=== PATIENT | female | born 1970 | race African-American/Black ===

== ENCOUNTER 2020-03-19 06:54 | Inpatient (IN) ==
[2020-03-19] MEDS ORDERED: SODIUM CHLORIDE 0.9% 1,000 ML IV STA ×2 (07:40→08:50)
[2020-03-19] MEDS ORDERED: LOPERAMIDE 2 MG CAPSULE PO STA (07:40)
[2020-03-19 07:52] LABS: Basophils # 0.1 10*3/uL (0.0-0.2); Basophils % 0.4 % (0.0-0.8); Eosinophils % 0.1 % (0.00-10.9); Hematocrit 28.3 VOL% (35.7-47.0); Immature Granulocytes % 5.7 %; Immature Granulocytes Absolute 1.54 #; Lymphocytes # 1.1 10*3/uL (1.4-4.0); Lymphocytes % 3.9 % (21.3-54.2); Mean Corpuscular HGB Conc 35.3 GM/DL (32-36); Mean Corpuscular Volume 89.8 FL (87-102); Mean Platelet Volume 9.1 FL (9.6-12.0); Monocytes % 6.1 % (1.7-12.7); Neutrophils % 83.8 % (38.7-73.9); Platelet Count 387 T/CUMM (130-400); Red Blood Count 3.15 MC/CUMM (3.8-5.5); Red Cell Distribution Width 12.5 % (9.3-17.3); White Blood Count 27.2 T/CUMM (4-12)
[2020-03-19 08:11] LABS: Bilirubin,Total 0.8 MG/DL (0.2-1.0); Osmolality,Calculated 294.9 MOS/KG (273-304); Total Protein 7.7 G/DL (6.4-8.3)
[2020-03-19 08:14] LABS: Band Neutrophils 14 % (0-10); Eosinophils 1 % (0-10); Lymphocytes 5 % (20-55); Platelet Estimate Normal; Segmented Neutrophils 73 % (50-85); Smudge Cells Few; Total Cells Counted 100
[2020-03-19 08:15] LABS: Nucleated Red Blood Cells 3 (0-5)
[2020-03-19 08:16] LABS: Burr Cells 1+
[2020-03-19] MEDS ORDERED: DEXTROSE 50% 25 GM/50 ML VIAL IV PRN (10:00)
[2020-03-19] MEDS ORDERED: SIMETHICONE CHEW 125 MG TABLET PO PRN (10:00)
[2020-03-19] MEDS ORDERED: guaiFENesin/DM ER 600-30 MG TABLET PO PRN (10:00)
[2020-03-19] MEDS ORDERED: SODIUM CHLORIDE 0.9% 1,000 ML IV SCH (10:00)
[2020-03-19] MEDS ORDERED: GLUCAGON 1 MG VIAL IM PRN (10:00)
[2020-03-19] MEDS ORDERED: ONDANSETRON 4 MG/2 ML VIAL IV PRN (10:00)
[2020-03-19 11:09] LABS: Barbiturates Screen,Urine Negative (Negative); Benzodiazepines Screen,Urine Negative (Negative); Cannabinoid Screen,Urine Negative (Negative); Opiate Screen,Urine Negative (Negative); Phencyclidine Screen,Urine Negative (Negative)
[2020-03-19 11:14] LABS: Risk Ratio 5.81; Thyroid Stimulating Hormone 0.141 uIU/ml (0.358-3.74); VLDL CHOLESTEROL 32.2 MG/DL
[2020-03-19 11:35] LABS: Hepatitis B Surface Ag Quant > 1000.00 Index; Hepatitis B Surface Ag Result Positive (Negative); Hepatitis C Virus Ab Quant 0.09 Index; Hepatitis C Virus Ab Result Negative (Negative)
[2020-03-19 12:35] LABS: HIV Antigen/Antibody Result Reactive (Nonreactive)
[2020-03-19] MEDS: SODIUM BICARB INJ 100 MEQ in SODIUM CHLORIDE 0.45% 1,000 ML IV SCH ×2 (13:00→21:09)
[2020-03-19] MEDS ORDERED: POTASSIUM CHLORIDE 20 MEQ TABLET PO STA (13:50)
[2020-03-19] MEDS: INSULIN REGULAR 100 UNIT/ML SUBCUT SCH ×3 (15:49→20:43)
[2020-03-19] MEDS: HEPARIN 5,000 UNIT/1 ML VIAL SUBCUT SCH ×2 (16:03→21:04)
[2020-03-19] MEDS: CIPROFLOXACIN INJ 400 MG in PREMIX 1 EACH IV SCH (16:29)
[2020-03-19] MEDS: metroNIDAZOLE INJ 500 MG in PREMIX 1 EACH IV SCH (18:24)
[2020-03-19] MEDS: PRAVASTATIN 20 MG TABLET PO SCH (21:03)
[2020-03-19] MEDS: traZODone 50 MG TABLET PO SCH (21:03)
[2020-03-19] MEDS: ASPIRIN EC 81 MG TABLET PO SCH (21:03)
[2020-03-20] MEDS: metroNIDAZOLE INJ 500 MG in PREMIX 1 EACH IV SCH ×3 (00:16→16:37)
[2020-03-20] MEDS: SODIUM BICARB INJ 100 MEQ in SODIUM CHLORIDE 0.45% 1,000 ML IV SCH ×2 (04:58→10:51)
[2020-03-20] MEDS: HEPARIN 5,000 UNIT/1 ML VIAL SUBCUT SCH ×3 (05:46→22:41)
[2020-03-20 06:52] LABS: Basophils # 0.1 10*3/uL (0.0-0.2); Basophils % 0.3 % (0.0-0.8); Eosinophils % 0.2 % (0.00-10.9); Hematocrit 25.3 VOL% (35.7-47.0); Immature Granulocytes % 6.6 %; Immature Granulocytes Absolute 1.45 #; Lymphocytes # 0.9 10*3/uL (1.4-4.0); Lymphocytes % 4.1 % (21.3-54.2); Mean Corpuscular HGB Conc 35.6 GM/DL (32-36); Mean Corpuscular Volume 89.4 FL (87-102); Monocytes % 4.7 % (1.7-12.7); Neutrophils % 84.1 % (38.7-73.9); Platelet Count 435 T/CUMM (130-400); Red Blood Count 2.83 MC/CUMM (3.8-5.5); Red Cell Distribution Width 12.6 % (9.3-17.3); White Blood Count 21.9 T/CUMM (4-12)
[2020-03-20 07:11] LABS: Albumin 1.8 G/DL (3.4-5.0); Bilirubin,Total 0.8 MG/DL (0.2-1.0); Calcium 8.2 MG/DL (8.5-10.1); Osmolality,Calculated 305.4 MOS/KG (273-304); Total Protein 6.6 G/DL (6.4-8.3)
[2020-03-20 07:14] LABS: Free T4 (Free Thyroxine) 0.45 NG/DL (0.76-1.46)
[2020-03-20] MEDS ORDERED: POTASSIUM CHLORIDE RIDER 10 MEQ in PREMIX 1 EACH IV PRN (07:35)
[2020-03-20 08:12] LABS: Band Neutrophils 1 % (0-10); Lymphocytes 2 % (20-55); Metamyelocytes 1 %; Myelocytes 1 %; Segmented Neutrophils 92 % (50-85); Total Cells Counted 100
[2020-03-20 08:13] LABS: Platelet Estimate Increased; Polychromasia Slight
[2020-03-20 08:14] LABS: Schistocytes Slight
[2020-03-20] MEDS: INSULIN REGULAR 100 UNIT/ML SUBCUT SCH ×4 (08:32→22:40)
[2020-03-20] MEDS: PANTOPRAZOLE 40 MG TABLET PO SCH (09:26)
[2020-03-20] MEDS: POTASSIUM CHLORIDE RIDER 10 MEQ in PREMIX 1 EACH IV SCH ×6 (09:27→19:01)
[2020-03-20 13:54] LABS: Osmolality,Calculated 297.4 MOS/KG (273-304)
[2020-03-20] MEDS: [UNRECOGNIZED DRUG - OTHER] IV SCH ×2 (14:12→21:43)
[2020-03-20] MEDS: SODIUM BICARB IV SCH ×2 (14:12→21:43)
[2020-03-20] MEDS: POTASSIUM CHLORIDE IV SCH ×2 (14:12→21:43)
[2020-03-20] MEDS: CIPROFLOXACIN INJ 400 MG in PREMIX 1 EACH IV SCH (15:18)
[2020-03-20 21:21] LABS: Calcium 7.9 MG/DL (8.5-10.1); Osmolality,Calculated 295.4 MOS/KG (273-304)
[2020-03-20] MEDS: traZODone 50 MG TABLET PO SCH (22:38)
[2020-03-20] MEDS: ASPIRIN EC 81 MG TABLET PO SCH (22:39)
[2020-03-20] MEDS: PRAVASTATIN 20 MG TABLET PO SCH (22:39)
[2020-03-20] MEDS: EFAVIRENZ EMTRICITABIN TENOFOV PO SCH (22:39)
[2020-03-21] MEDS: metroNIDAZOLE INJ 500 MG in PREMIX 1 EACH IV SCH ×3 (00:02→18:25)
[2020-03-21 01:51] LABS: Creatinine Clearance Urine 26.22 ML/MIN (70-115)
[2020-03-21] MEDS: POTASSIUM CHLORIDE IV SCH (03:59)
[2020-03-21] MEDS: [UNRECOGNIZED DRUG - OTHER] IV SCH (03:59)
[2020-03-21] MEDS: SODIUM BICARB IV SCH (03:59)
[2020-03-21 05:19] LABS: Basophils % 0.2 % (0.0-0.8); Eosinophils % 0.2 % (0.00-10.9); Hematocrit 23.8 VOL% (35.7-47.0); Hemoglobin 8.4 GM/DL (12.0-16.0); Immature Granulocytes % 9.5 %; Immature Granulocytes Absolute 1.57 #; Lymphocytes % 6.3 % (21.3-54.2); Mean Corpuscular HGB Conc 35.3 GM/DL (32-36); Mean Corpuscular Volume 89.5 FL (87-102); Mean Platelet Volume 8.7 FL (9.6-12.0); Monocytes % 6.2 % (1.7-12.7); Neutrophils % 77.6 % (38.7-73.9); Platelet Count 436 T/CUMM (130-400); Red Blood Count 2.66 MC/CUMM (3.8-5.5); Red Cell Distribution Width 12.6 % (9.3-17.3); White Blood Count 16.5 T/CUMM (4-12)
[2020-03-21 05:55] LABS: Albumin 1.7 G/DL (3.4-5.0); Bilirubin,Total 0.6 MG/DL (0.2-1.0); Total Protein 6.5 G/DL (6.4-8.3)
[2020-03-21 06:59] LABS: Band Neutrophils 9 % (0-10); Lymphocytes 11 % (20-55); Platelet Estimate Normal; Segmented Neutrophils 75 % (50-85); Total Cells Counted 100
[2020-03-21 07:00] LABS: Anisocytosis 1+
[2020-03-21] MEDS: HEPARIN 5,000 UNIT/1 ML VIAL SUBCUT SCH ×3 (07:08→22:03)
[2020-03-21] MEDS: POTASSIUM CHLORIDE 20 MEQ TABLET PO PRN ×4 (07:11→16:52)
[2020-03-21] MEDS ORDERED: POTASSIUM CHLORIDE INJ 20 MEQ in SODIUM CHLORIDE 0.45% 1,000 ML IV SCH (07:41)
[2020-03-21] MEDS: INSULIN REGULAR 100 UNIT/ML SUBCUT SCH ×4 (09:04→21:56)
[2020-03-21] MEDS: POTASSIUM CHLORIDE 20 MEQ TABLET PO SCH (09:10)
[2020-03-21] MEDS: PANTOPRAZOLE 40 MG TABLET PO SCH (09:11)
[2020-03-21 09:57] LABS: Basophils # 0.1 10*3/uL (0.0-0.2); Basophils % 0.3 % (0.0-0.8); Eosinophils % 0.1 % (0.00-10.9); Hematocrit 24.9 VOL% (35.7-47.0); Hemoglobin 8.7 GM/DL (12.0-16.0); Immature Granulocytes % 8.4 %; Immature Granulocytes Absolute 1.24 #; Lymphocytes # 0.8 10*3/uL (1.4-4.0); Lymphocytes % 5.2 % (21.3-54.2); Mean Corpuscular HGB Conc 34.9 GM/DL (32-36); Mean Corpuscular Volume 90.2 FL (87-102); Mean Platelet Volume 8.7 FL (9.6-12.0); Monocytes % 4.9 % (1.7-12.7); Neutrophils % 81.1 % (38.7-73.9); Platelet Count 455 T/CUMM (130-400); Red Blood Count 2.76 MC/CUMM (3.8-5.5); Red Cell Distribution Width 12.8 % (9.3-17.3); White Blood Count 14.8 T/CUMM (4-12)
[2020-03-21 10:27] LABS: Anisocytosis 1+; Band Neutrophils 6 % (0-10); Lymphocytes 7 % (20-55); Metamyelocytes 1 %; Myelocytes 2 %; Platelet Estimate Normal; Segmented Neutrophils 76 % (50-85); Smudge Cells Few; Total Cells Counted 100
[2020-03-21 10:28] LABS: Macrocytosis Slight
[2020-03-21] MEDS: SODIUM CHLOR 0.45% KCL 20 MEQ 20 MEQ/1,000 ML BAG IV SCH (11:54)
[2020-03-21] MEDS: CIPROFLOXACIN INJ 400 MG in PREMIX 1 EACH IV SCH (14:38)
[2020-03-21] MEDS: traZODone 50 MG TABLET PO SCH (21:55)
[2020-03-21] MEDS: ASPIRIN EC 81 MG TABLET PO SCH (21:55)
[2020-03-21] MEDS: PRAVASTATIN 20 MG TABLET PO SCH (21:55)
[2020-03-21] MEDS: EFAVIRENZ EMTRICITABIN TENOFOV PO SCH (21:56)
[2020-03-22] MEDS: metroNIDAZOLE INJ 500 MG in PREMIX 1 EACH IV SCH (01:33)
[2020-03-22 06:25] LABS: Basophils # 0.1 10*3/uL (0.0-0.2); Basophils % 0.5 % (0.0-0.8); Eosinophils # 0.1 10*3/uL (0.0-0.87); Eosinophils % 0.4 % (0.00-10.9); Hematocrit 24.5 VOL% (35.7-47.0); Hemoglobin 8.4 GM/DL (12.0-16.0); Immature Granulocytes % 9.3 %; Immature Granulocytes Absolute 1.19 #; Lymphocytes # 1.1 10*3/uL (1.4-4.0); Lymphocytes % 8.4 % (21.3-54.2); Mean Corpuscular HGB Conc 34.3 GM/DL (32-36); Mean Corpuscular Volume 93.5 FL (87-102); Mean Platelet Volume 8.7 FL (9.6-12.0); Monocytes % 6.6 % (1.7-12.7); Neutrophils % 74.8 % (38.7-73.9); Platelet Count 440 T/CUMM (130-400); Red Blood Count 2.62 MC/CUMM (3.8-5.5); Red Cell Distribution Width 13.1 % (9.3-17.3); White Blood Count 12.8 T/CUMM (4-12)
[2020-03-22 06:42] LABS: Alanine Aminotransferase 34 U/L (13-56); Albumin 1.8 G/DL (3.4-5.0); Alkaline Phosphatase 126 U/L (45-117); Aspartate Amino Transferase 22 U/L (0-37); Bilirubin,Total < 0.39 MG/DL (0.2-1.0); Blood Urea Nitrogen 28 MG/DL (7-18); Calcium 8.2 MG/DL (8.5-10.1); Estimated Glom Filtration Rate 37 ML/MIN; Glucose 135 MG/DL (74-106); Osmolality,Calculated 293.8 MOS/KG (273-304); Total Protein 6.8 G/DL (6.4-8.3)
[2020-03-22] MEDS: HEPARIN 5,000 UNIT/1 ML VIAL SUBCUT SCH (07:25)
[2020-03-22 08:24] LABS: Anisocytosis 1+; Band Neutrophils 7 % (0-10); Lymphocytes 11 % (20-55); Metamyelocytes 1 %; Myelocytes 2 %; Platelet Estimate Normal; Segmented Neutrophils 72 % (50-85); Total Cells Counted 100
[2020-03-22 08:25] LABS: Poikilocytosis Slight; Smudge Cells Few; Toxic Granulation 1+
[2020-03-22 08:52] VITALS: BP 108/51
[2020-03-22] MEDS: SODIUM CHLOR 0.45% KCL 20 MEQ 20 MEQ/1,000 ML BAG IV SCH ×2 (08:57→10:28)
[2020-03-22] MEDS: INSULIN REGULAR 100 UNIT/ML SUBCUT SCH ×2 (08:57→11:51)
[2020-03-22] MEDS ORDERED: sitaGLIPtin 25 MG TABLET PO SCH (09:00)
[2020-03-22] MEDS ORDERED: CIPROFLOXACIN 250 MG TABLET PO SCH (09:30)
[2020-03-22] MEDS: POTASSIUM CHLORIDE 20 MEQ TABLET PO SCH (10:05)
[2020-03-22] MEDS: PANTOPRAZOLE 40 MG TABLET PO SCH (10:06)
[2020-03-25 14:25] LABS: Cryptosporidium Antigen Stool Negative (Negative)
== END 2020-03-22 12:03 | disposition home or self-care (01) | DRG 469 ==
LOC: EDUNIT# → EDBD → N.ED 06:54 → SUATTDRO 09:27 → N.EDINP 09:27 → N.3E 15:41
PROVIDERS: ADMIT Family Medicine; ATTEND Internal Medicine